=== PATIENT | female | born 1970 | race Two or more races ===

== ENCOUNTER 2017-05-25 02:26 | Inpatient (IN) | payer SELFPAY ==
[2017-05-25 02:52] LABS: URINE HCG POC HCG NEGATIVE (Negative)
[2017-05-25 03:12] LABS: BILIRUBIN,URINE NEGATIVE (NEG); CLARITY,URINE CLEAR; COLOR,URINE YELLOW; GLUCOSE,URINE NEGATIVE (NEG); NITRITE,URINE NEGATIVE (NEG); PH,URINE 7.5; PROTEIN,URINE NEGATIVE (NEG-TRACE)
[2017-05-25 03:13] LABS: BASO % 0 % (0-3); EOS % 0 % (0-3); HEMATOCRIT 35.3 % (36.0-47.0); HEMOGLOBIN 11.1 g/dL (12.0-15.5); LYMPH # 0.9 x10^3/uL (1.0-4.8); LYMPH % 7 % (24-48); MEAN CORPUSCULAR HEMOGLOBIN 23 pg (25-35); MEAN CORPUSCULAR HGB CONC 31 g/dL (31-37); MEAN CORPUSCULAR VOLUME 74 fL (79-100); MONO # 0.4 x10^3/uL (0.0-1.1); MONO % 3 % (0-9); NEUT # 11.9 x10^3uL (1.8-7.7); NEUT % 90 % (31-73); PLATELET COUNT 466 x10^3/uL (140-400); RED BLOOD COUNT 4.75 x10^6/uL (3.50-5.40); RED CELL DISTRIBUTION WIDTH 17.7 % (11.5-14.5); WHITE BLOOD COUNT 13.2 x10^3/uL (4.0-11.0)
[2017-05-25 03:18] LABS: ADD MAN DIFF? YES
[2017-05-25 03:20] LABS: BACTERIA,URINE 0 /HPF (0-FEW); SQUAMOUS EPITHELIAL CELL,UR FEW /LPF; WBC,URINE 0 /HPF (0-4)
[2017-05-25] MEDS: FAMOTIDINE 20 MG/2 ML VIAL IVP (03:21)
[2017-05-25] MEDS: ONDANSETRON PF 4 MG/2 ML VIAL. IV (03:21)
[2017-05-25] MEDS: fentaNYL PF VIAL 100 MCG/2 ML VIAL IV ×2 (03:22→05:03)
[2017-05-25] MEDS: IV NORMAL SALINE 1000ML BAG 1,000 ML IV (03:22)
[2017-05-25 03:30] LABS: LACTIC ACID 1.6 mmol/L (0.4-2.0)
[2017-05-25 03:43] LABS: ANION GAP 10 (6-14); BLOOD UREA NITROGEN 8 mg/dL (7-20); BUN/CREATININE RATIO 16 (6-20); CARBON DIOXIDE 24 mmol/L (21-32); CHLORIDE 105 mmol/L (98-107); CREATININE 0.5 mg/dL (0.6-1.0); GFR 131.7; GLUCOSE 127 mg/dL (70-99); POTASSIUM 3.3 mmol/L (3.5-5.1); SODIUM 139 mmol/L (136-145)
[2017-05-25 03:51] LABS: ALBUMIN 3.2 g/dL (3.4-5.0); ALBUMIN/GLOBULIN RATIO 0.9 (1.0-1.7); ALK PHOS 90 U/L (46-116); ALT (SGPT) 29 U/L (14-59); AST (SGOT) 29 U/L (15-37); LIPASE 145 U/L (73-393); TOTAL BILIRUBIN 0.6 mg/dL (0.2-1.0); TOTAL PROTEIN 6.9 g/dL (6.4-8.2)
[2017-05-25 04:12] LABS: % LYMPHS 9 % (24-48); % SEGS 91 % (35-66); ANISOCYTOSIS SLIGHT; HYPOCHROMIA SLIGHT; MICROCYTOSIS SLIGHT; PLT ESTIMATE ADEQUATE (ADEQUATE)
[2017-05-25] MEDS ORDERED: CONTRAST GIVEN MC (04:30)
[2017-05-25] MEDS: IOHEXOL 300 MG/ML 100ML VIAL. IV (04:37)
[2017-05-25] MEDS ORDERED: IV NORMAL SALINE 1000ML BAG 1,000 ML IV (05:53)
[2017-05-25] MEDS ORDERED: ONDANSETRON PF 4 MG/2 ML VIAL. IV (06:00)
[2017-05-25] MEDS ORDERED: fentaNYL PF VIAL 100 MCG/2 ML VIAL IV (06:00)
[2017-05-25] MEDS: ACETAMINOPHEN 325 MG TABLET. PO ×3 (10:28→23:49)
[2017-05-25] MEDS: AMINO AC 3%/ELECTROLYTE/GLYCER 1,000 ML IV (15:19)
[2017-05-25] MEDS: cefTRIAXone IV Push 1 GM VIAL. IVP (23:44)
[2017-05-25] MEDS: IV NORMAL SALINE 500ML BAG 500 ML IV (23:44)
[2017-05-26 01:49] LABS: ADD MAN DIFF? NO
[2017-05-26 01:53] LABS: BASO % 0 % (0-3); EOS % 0 % (0-3); HEMATOCRIT 27.4 % (36.0-47.0); HEMOGLOBIN 8.7 g/dL (12.0-15.5); LYMPH # 1.1 x10^3/uL (1.0-4.8); LYMPH % 6 % (24-48); MEAN CORPUSCULAR HEMOGLOBIN 24 pg (25-35); MEAN CORPUSCULAR HGB CONC 32 g/dL (31-37); MEAN CORPUSCULAR VOLUME 75 fL (79-100); MONO # 1.6 x10^3/uL (0.0-1.1); MONO % 8 % (0-9); NEUT % 86 % (31-73); PLATELET COUNT 303 x10^3/uL (140-400); RED BLOOD COUNT 3.68 x10^6/uL (3.50-5.40); RED CELL DISTRIBUTION WIDTH 17.9 % (11.5-14.5); WHITE BLOOD COUNT 19.7 x10^3/uL (4.0-11.0)
[2017-05-26 02:03] LABS: ANION GAP 8 (6-14); BLOOD UREA NITROGEN 11 mg/dL (7-20); CALCIUM 8.3 mg/dL (8.5-10.1); CARBON DIOXIDE 26 mmol/L (21-32); CHLORIDE 104 mmol/L (98-107); CREATININE 0.6 mg/dL (0.6-1.0); GFR 106.7; GLUCOSE 114 mg/dL (70-99); SODIUM 138 mmol/L (136-145)
[2017-05-26 02:11] LABS: POTASSIUM 2.8 mmol/L (3.5-5.1)
[2017-05-26] MEDS: AMINO AC 3%/ELECTROLYTE/GLYCER 1,000 ML IV ×2 (02:50→11:02)
[2017-05-26] MEDS: IV NORMAL SALINE 500ML BAG 500 ML IV (03:05)
[2017-05-26] MEDS: POTASSIUM CHLORIDE 20 MEQ TABLET.ER. PO (04:50)
[2017-05-26] MEDS: ACETAMINOPHEN 325 MG TABLET. PO ×3 (06:34→16:14)
[2017-05-26] MEDS: PIPERACILLIN/TAZOBACTAM 4.5 GM in IV NORMAL SALINE 100ML 100 ML IV ×2 (10:01→18:00)
[2017-05-26] MEDS: LACTOBACILLUS RHAMNOSUS GG 1 CAPSULE. PO ×2 (10:16→21:36)
[2017-05-26] MEDS: ESTROGENS, CONJUGATED 25 MG VIAL IV ×3 (11:01→19:28)
[2017-05-26 11:16] LABS: % SAT IRON 4 % (15-34); IRON,SERUM 11 ug/dL (50-170)
[2017-05-26 11:17] LABS: RETIC COUNT 1.7 % (0.5-2.5)
[2017-05-26 11:28] LABS: FOLATE 6.33 ng/ml (3.2-20.0)
[2017-05-26 11:28] LABS: VITAMIN-B12 238 pg/mL (247-911)
[2017-05-26 14:58] LABS: BASO % 0 % (0-3); EOS % 0 % (0-3); HEMATOCRIT 30.2 % (36.0-47.0); HEMOGLOBIN 9.2 g/dL (12.0-15.5); LYMPH # 0.8 x10^3/uL (1.0-4.8); LYMPH % 4 % (24-48); MEAN CORPUSCULAR HEMOGLOBIN 23 pg (25-35); MEAN CORPUSCULAR HGB CONC 30 g/dL (31-37); MEAN CORPUSCULAR VOLUME 76 fL (79-100); MONO # 1.1 x10^3/uL (0.0-1.1); MONO % 5 % (0-9); NEUT # 20.3 x10^3uL (1.8-7.7); NEUT % 91 % (31-73); PLATELET COUNT 327 x10^3/uL (140-400); RED BLOOD COUNT 3.99 x10^6/uL (3.50-5.40); RED CELL DISTRIBUTION WIDTH 17.9 % (11.5-14.5); WHITE BLOOD COUNT 22.3 x10^3/uL (4.0-11.0)
[2017-05-26 14:59] LABS: ADD MAN DIFF? YES
[2017-05-26 15:35] LABS: % BASOS 1 % (0-3); % LYMPHS 3 % (24-48); % MONOS 6 % (0-10); % SEGS 90 % (35-66); HYPOCHROMIA MOD; PLT ESTIMATE INCREASED (ADEQUATE); POLYCHROMASIA SLIGHT; TOXIC GRANULATION MOD
[2017-05-26] MEDS: MAGNESIUM HYDROXIDE 2,400 MG/30 ML ORAL.SUSP. PO (16:05)
[2017-05-26] MEDS: DOCUSATE SODIUM 100 MG CAPSULE. PO (16:05)
[2017-05-26] MEDS: IOHEXOL 240 MG/ML 50ML VIAL. PO (19:30)
[2017-05-26] MEDS: IOHEXOL 300 MG/ML 100ML VIAL. IV (19:30)
[2017-05-26] MEDS ORDERED: CONTRAST GIVEN MC (19:45)
[2017-05-26] MEDS: HYDROcodone/APAP 5/325MG 1 TAB TABLET PO (22:36)
[2017-05-27] MEDS: PIPERACILLIN/TAZOBACTAM 4.5 GM in IV NORMAL SALINE 100ML 100 ML IV ×3 (00:08→12:27)
[2017-05-27] MEDS: ESTROGENS, CONJUGATED 25 MG VIAL IV ×3 (00:46→12:00)
[2017-05-27 05:10] LABS: ADD MAN DIFF? NO
[2017-05-27 05:25] LABS: BASO % 0 % (0-3); EOS % 0 % (0-3); HEMATOCRIT 30.1 % (36.0-47.0); HEMOGLOBIN 9.2 g/dL (12.0-15.5); LYMPH % 4 % (24-48); MEAN CORPUSCULAR HEMOGLOBIN 23 pg (25-35); MEAN CORPUSCULAR HGB CONC 31 g/dL (31-37); MEAN CORPUSCULAR VOLUME 75 fL (79-100); MONO # 1.8 x10^3/uL (0.0-1.1); MONO % 7 % (0-9); NEUT # 23.3 x10^3uL (1.8-7.7); NEUT % 89 % (31-73); PLATELET COUNT 349 x10^3/uL (140-400); RED BLOOD COUNT 4.01 x10^6/uL (3.50-5.40); RED CELL DISTRIBUTION WIDTH 17.9 % (11.5-14.5); WHITE BLOOD COUNT 26.1 x10^3/uL (4.0-11.0)
[2017-05-27] MEDS: AMINO AC 3%/ELECTROLYTE/GLYCER 1,000 ML IV ×2 (05:29→18:50)
[2017-05-27 06:00] LABS: ALBUMIN 2.3 g/dL (3.4-5.0); ALBUMIN/GLOBULIN RATIO 0.5 (1.0-1.7); ALK PHOS 113 U/L (46-116); ALT (SGPT) 28 U/L (14-59); ANION GAP 10 (6-14); AST (SGOT) 22 U/L (15-37); BLOOD UREA NITROGEN 10 mg/dL (7-20); BUN/CREATININE RATIO 17 (6-20); CALCIUM 8.7 mg/dL (8.5-10.1); CARBON DIOXIDE 24 mmol/L (21-32); CHLORIDE 105 mmol/L (98-107); CREATININE 0.6 mg/dL (0.6-1.0); GFR 106.7; GLUCOSE 115 mg/dL (70-99); POTASSIUM 3.5 mmol/L (3.5-5.1); SODIUM 139 mmol/L (136-145); TOTAL BILIRUBIN 1.5 mg/dL (0.2-1.0); TOTAL PROTEIN 6.5 g/dL (6.4-8.2)
[2017-05-27] MEDS ORDERED: BUPIVACAINE-EPI 0.25%-1:200000 50 ML VIAL. (07:41)
[2017-05-27] MEDS: LACTOBACILLUS RHAMNOSUS GG 1 CAPSULE. PO ×2 (09:00→21:00)
[2017-05-27] MEDS: HYDROcodone/APAP 5/325MG 1 TAB TABLET PO (09:15)
[2017-05-27] MEDS ORDERED: ESTROGENS, CONJ VAGINAL CREAM 30GM TUBE. (11:58)
[2017-05-27] MEDS ORDERED: METHYLENE BLUE 1% 10 ML VIAL. (11:58)
[2017-05-27] MEDS ORDERED: metroNIDAZOLE 0.75% TOPICAL 1 APP TUBE TP (11:58)
[2017-05-27] MEDS ORDERED: fentaNYL PF VIAL 100 MCG/2 ML VIAL IV (12:45)
[2017-05-27] MEDS ORDERED: LIDOCAINE 1% PF 2 ML VIAL. ID (12:45)
[2017-05-27] MEDS ORDERED: MORPHINE SULFATE 2 MG/ML DISP.SYRIN. IV (12:45)
[2017-05-27] MEDS ORDERED: ONDANSETRON PF 4 MG/2 ML VIAL. IV (12:45)
[2017-05-27] MEDS ORDERED: PROPOFOL 20 ML IV (12:59)
[2017-05-27] MEDS ORDERED: DEXAMETHASONE SOD PHOS 20 MG/5 ML VIAL. (12:59)
[2017-05-27] MEDS ORDERED: SUCCINYLCHOLINE 200 MG/10 ML VIAL. (12:59)
[2017-05-27] MEDS ORDERED: FAMOTIDINE 20 MG/2 ML VIAL (12:59)
[2017-05-27] MEDS ORDERED: ROCURONIUM 50 MG/5 ML VIAL. (12:59)
[2017-05-27] MEDS ORDERED: fentaNYL PF VIAL 100 MCG/2 ML VIAL (15:32)
[2017-05-27] MEDS ORDERED: GLYCOPYRROLATE 1 MG/5 ML VIAL. (15:54)
[2017-05-27] MEDS ORDERED: NEOSTIGMINE METHYLSULFATE 5 MG/5 ML SYRINGE. (15:54)
[2017-05-27] MEDS ORDERED: SEVOFLURANE > 120 MINUTES. IH (16:05)
[2017-05-27] MEDS ORDERED: diphenhydrAMINE 50 MG/ML VIAL IV (16:15)
[2017-05-27] MEDS ORDERED: DEXTROSE 50% 25 GM / 50ML DISP.SYRIN. IV (16:15)
[2017-05-27] MEDS ORDERED: diphenhydrAMINE HCL 25 MG CAPSULE PO (16:15)
[2017-05-27] MEDS ORDERED: 0.9 % SODIUM CHLORIDE 10 ML DISP.SYRIN. IV (16:15)
[2017-05-27] MEDS ORDERED: ZOLPIDEM 5 MG TABLET. PO (16:15)
[2017-05-27] MEDS ORDERED: MAG HYDROX/ALUMINUM HYD/SIMETH 30 ML ORAL.SUSP PO (16:15)
[2017-05-27] MEDS ORDERED: NALOXONE 0.4 MG/ML VIAL. IV (16:15)
[2017-05-27] MEDS ORDERED: SIMETHICONE 80 MG TAB.CHEW PO (16:15)
[2017-05-27] MEDS ORDERED: ceFAZolin SODIUM 1 GM in IV DEXTROSE 5% 50 ML IV (16:15)
[2017-05-27] MEDS: PROCHLORPERAZINE 10 MG/2 ML VIAL. IV (16:47)
[2017-05-27] MEDS: IV RINGERS,LACTATED 1000ML 1,000 ML IV (16:47)
[2017-05-27] MEDS: fentaNYL PF VIAL 100 MCG/2 ML VIAL IV ×2 (16:48→17:43)
[2017-05-27] MEDS: SENNOSIDES/DOCUSATE 8.6/50MG TABLET. PO (21:00)
[2017-05-27] MEDS ORDERED: ceFAZolin SODIUM IV Push 1 GM VIAL. IVP (21:00)
[2017-05-27] MEDS: DOCUSATE SODIUM 100 MG CAPSULE. PO (21:00)
[2017-05-28] MEDS: PIPERACILLIN/TAZOBACTAM 4.5 GM in IV NORMAL SALINE 100ML 100 ML IV ×5 (00:14→17:36)
[2017-05-28 04:47] LABS: ADD MAN DIFF? NO
[2017-05-28 04:52] LABS: BASO % 0 % (0-3); EOS % 0 % (0-3); HEMATOCRIT 27.6 % (36.0-47.0); HEMOGLOBIN 8.7 g/dL (12.0-15.5); LYMPH # 1.1 x10^3/uL (1.0-4.8); LYMPH % 5 % (24-48); MEAN CORPUSCULAR HEMOGLOBIN 24 pg (25-35); MEAN CORPUSCULAR HGB CONC 32 g/dL (31-37); MEAN CORPUSCULAR VOLUME 75 fL (79-100); MONO # 0.7 x10^3/uL (0.0-1.1); MONO % 3 % (0-9); NEUT # 20.3 x10^3uL (1.8-7.7); NEUT % 92 % (31-73); PLATELET COUNT 367 x10^3/uL (140-400); RED CELL DISTRIBUTION WIDTH 18.4 % (11.5-14.5); WHITE BLOOD COUNT 22.1 x10^3/uL (4.0-11.0)
[2017-05-28 05:19] LABS: ANION GAP 8 (6-14); BLOOD UREA NITROGEN 14 mg/dL (7-20); CALCIUM 8.3 mg/dL (8.5-10.1); CARBON DIOXIDE 25 mmol/L (21-32); CHLORIDE 107 mmol/L (98-107); CREATININE 0.5 mg/dL (0.6-1.0); GFR 131.7; GLUCOSE 121 mg/dL (70-99); POTASSIUM 3.5 mmol/L (3.5-5.1); SODIUM 140 mmol/L (136-145)
[2017-05-28] MEDS ORDERED: ACETAMINOPHEN 500 MG TABLET PO (08:00)
[2017-05-28] MEDS ORDERED: KETOROLAC 30 MG/ML INJ. IV (09:30)
[2017-05-28] MEDS: LACTOBACILLUS RHAMNOSUS GG 1 CAPSULE. PO ×2 (09:37→21:31)
[2017-05-28] MEDS: MAGNESIUM HYDROXIDE 2,400 MG/30 ML ORAL.SUSP. PO (09:38)
[2017-05-28] MEDS: CALCIUM CARBONATE 500 MG TAB.CHEW PO ×3 (09:38→17:51)
[2017-05-28] MEDS: ONDANSETRON PF 4 MG/2 ML VIAL. IV (09:40)
[2017-05-28] MEDS: KETOROLAC 30 MG/ML INJ. IV (09:47)
[2017-05-28] MEDS: HYDROcodone/APAP 5/325MG 1 TAB TABLET PO ×2 (13:50→17:52)
[2017-05-28] MEDS: BISACODYL 10 MG SUPP.RECT. PR (13:51)
[2017-05-28] MEDS: SENNOSIDES/DOCUSATE 8.6/50MG TABLET. PO ×2 (17:51→21:31)
[2017-05-28] MEDS: DOCUSATE SODIUM 100 MG CAPSULE. PO ×2 (17:51→21:31)
[2017-05-28] MEDS: IBUPROFEN 800 MG TABLET. PO (17:52)
[2017-05-29] MEDS: PIPERACILLIN/TAZOBACTAM 4.5 GM in IV NORMAL SALINE 100ML 100 ML IV (00:08)
[2017-05-29 05:05] LABS: ADD MAN DIFF? NO
[2017-05-29 05:35] LABS: BASO % 0 % (0-3); EOS % 0 % (0-3); HEMATOCRIT 25.7 % (36.0-47.0); HEMOGLOBIN 8.1 g/dL (12.0-15.5); LYMPH # 2.3 x10^3/uL (1.0-4.8); LYMPH % 22 % (24-48); MEAN CORPUSCULAR HEMOGLOBIN 24 pg (25-35); MEAN CORPUSCULAR HGB CONC 32 g/dL (31-37); MEAN CORPUSCULAR VOLUME 74 fL (79-100); MONO # 0.9 x10^3/uL (0.0-1.1); MONO % 8 % (0-9); NEUT # 7.3 x10^3uL (1.8-7.7); NEUT % 69 % (31-73); PLATELET COUNT 331 x10^3/uL (140-400); RED BLOOD COUNT 3.46 x10^6/uL (3.50-5.40); RED CELL DISTRIBUTION WIDTH 17.7 % (11.5-14.5); WHITE BLOOD COUNT 10.5 x10^3/uL (4.0-11.0)
[2017-05-29] MEDS: LACTOBACILLUS RHAMNOSUS GG 1 CAPSULE. PO ×2 (09:16→21:39)
[2017-05-29] MEDS: IBUPROFEN 800 MG TABLET. PO ×2 (09:17→19:49)
[2017-05-29] MEDS: AMOXICILLIN/K CLAV 875/125MG TABLET. PO ×2 (10:31→21:39)
[2017-05-29] MEDS: DOCUSATE SODIUM 100 MG CAPSULE. PO (21:00)
[2017-05-29] MEDS: SENNOSIDES/DOCUSATE 8.6/50MG TABLET. PO (21:00)
[2017-05-29] MEDS: metroNIDAZOLE 500 MG TABLET PO (21:39)
[2017-05-30] MEDS: metroNIDAZOLE 500 MG TABLET PO ×2 (05:57→13:48)
[2017-05-30] MEDS: LACTOBACILLUS RHAMNOSUS GG 1 CAPSULE. PO (08:18)
[2017-05-30] MEDS: AMOXICILLIN/K CLAV 875/125MG TABLET. PO (08:18)
[2017-05-30] MEDS: DOCUSATE SODIUM 100 MG CAPSULE. PO (09:00)
[2017-05-30] MEDS: SENNOSIDES/DOCUSATE 8.6/50MG TABLET. PO (09:00)
[2017-05-30] MEDS: oxyCODONE/APAP 5/325 1 TAB TABLET PO (10:16)
[2017-05-30] MEDS: HYDROcodone/APAP 5/325MG 1 TAB TABLET PO (19:01)
== END 2017-05-30 19:08 | disposition home or self-care (01) | DRG 743 ==
LOC: ER 02:26 → 5 SOUTH 05:32 → 3 NORTH 05-27 17:48
PROC: 0UT20ZZ Resection of Bilateral Ovaries, Open Approach (ICD-10-PCS; principal; 2017-05-27 13:30)
PROC: 0UT70ZZ Resection of Bilateral Fallopian Tubes, Open Approach (ICD-10-PCS; 2017-05-27 13:30)
PROC: 0UT90ZZ Resection of Uterus, Open Approach (ICD-10-PCS; 2017-05-27 13:30)
DX: D25.9 Leiomyoma of uterus, unspecified (principal); B96.7 Clostridium perfringens [C. perfringens] as the cause of diseases classified elsewhere; D72.829 Elevated white blood cell count, unspecified; E66.3 Overweight; Z68.29 Body mass index [BMI] 29.0-29.9, adult; Z82.49 Family history of ischemic heart disease and other diseases of the circulatory system; N93.9 Abnormal uterine and vaginal bleeding, unspecified; D53.9 Nutritional anemia, unspecified
CPT/HCPCS: 36415; 74177; 76700; 76856; 80048; 80053; 81001; 81025; 82607; 82746; 83540; 83550; 83605; 83690; 85007; 85025; 85045; 86850; 86900; 86901; 87040; 87071; 87075; 87205; 88307; 88311; 93005; 96374; 96375; 96376; 99285-25; A7015; G0238; J0330; J0696; J0780; J1100; J1410; J1885; J2405; J2543; J2704; J2710; J3010; J3490; J7030; J7040; J7120; Q9966; Q9967; Q9968; S0028